=== PATIENT | male | born 1935 | race Two or more races ===

== ENCOUNTER 2023-11-01 04:08 | Inpatient (IN) | payer MEDICARE, OTHER ==
[~2023-11-01] VITALS: Ht 162.6 cm; Wt 58.5 kg
[2023-11-01 04:52] LABS: BASOPHILS # (AUTO) 0.1 K/uL (0.0-0.2); BASOPHILS % (AUTO) 0.8 % (0.0-2.0); EOSINOPHILS # (AUTO) 0.3 K/uL (0.0-0.7); EOSINOPHILS % (AUTO) 3.7 % (0.0-6.0); HEMATOCRIT 30 % (39-51); HEMOGLOBIN 10.2 g/dL (13.5-17.5); LYMPHOCYTES # (AUTO) 2.2 K/uL (0.8-4.8); LYMPHOCYTES % (AUTO) 32.3 % (20.0-44.0); MEAN CORPUSCULAR HEMOGLOBIN 30 PG (26.0-33.0); MEAN CORPUSCULAR HGB CONC 34 g/dl (31.0-36.0); MEAN CORPUSCULAR VOLUME 89 fL (80-96); MONOCYTES # (AUTO) 0.6 K/uL (0.1-1.30); MONOCYTES % (AUTO) 9.4 % (2.0-12.0); NEUTROPHILS # (AUTO) 3.7 K/uL (1.8-8.9); NEUTROPHILS % (AUTO) 53.8 % (43.0-81.0); PLATELET COUNT (AUTO) 275 K/uL (150-450); RED BLOOD CELL COUNT(AUTO) 3.35 MIL/uL (4.5-6.0); RED CELL DISTRIBUTION WIDTH 13.8 % (11.5-15.0); WHITE BLOOD COUNT (AUTO) 6.9 K/uL (4.3-11.0)
[2023-11-01 05:08] LABS: ALANINE AMINOTRANSFERASE 20 U/L (12-78); ALBUMIN 2.8 g/dL (3.4-5.0); ALCOHOL, BLOOD < 3 mg/dL (0-10); ALKALINE PHOSPHATASE 105 U/L (46-116); ASPARTATE AMINOTRANSFERASE 23 U/L (15-37); BILIRUBIN,DIRECT 0.2 mg/dL (0.0-0.2); BILIRUBIN,TOTAL 0.6 mg/dL (0.2-1.0); CALCIUM, SERUM 9.2 mg/dL (8.5-10.1); CARBON DIOXIDE 28 mmol/L (21-32); CHLORIDE 102 mmol/L (98-107); CREATININE 1.2 mg/dL (0.6-1.3); GLUCOSE 162 mg/dL (74-106); POTASSIUM 4.4 mmol/L (3.5-5.1); SODIUM SERUM 139 mmol/L (136-145); TOTAL PROTEIN, SERUM 6.7 g/dL (6.4-8.2); UREA NITROGEN, BLOOD 35 mg/dL (7-18)
[2023-11-01 05:11] LABS: ACETAMINOPHEN 0 ug/ml (10-30)
[2023-11-01 05:41] LABS: AMPHETAMINE, URINE NEGATIVE (NEGATIVE); BARBITURATE, URINE NEGATIVE (NEGATIVE); BENZODIAZEPINE, URINE NEGATIVE (NEGATIVE); CANNABINOID, URINE NEGATIVE (NEGATIVE); COCCAINE, URINE NEGATIVE (NEGATIVE); OPIATE, URINE NEGATIVE (NEGATIVE); PHENCYCLIDINE SCREEN,URINE NEGATIVE (NEGATIVE)
[2023-11-01 06:17] LABS: APPEARANCE,URINE CLEAR (CLEAR); COLOR,URINE YELLOW (YELLOW)
[2023-11-01 06:18] LABS: BILIRUBIN,URINE 1+ (NEGATIVE); BLOOD, URINE NEGATIVE Ery/uL (NEGATIVE); KETONES,URINE TRACE mg/dL (NEGATIVE); PROTEIN,URINE 1+ mg/dl (NEGATIVE); UGLUCOSE NEGATIVE (NEGATIVE)
[2023-11-01 06:19] LABS: LEUKOCYTE ESTERASE ,URINE 2+ (NEGATIVE); NITRITE, URINE NEGATIVE (NEGATIVE); UROBILINOGEN,URINE 0.2 EU/dL (0.2)
[2023-11-01 06:37] LABS: ADD URINE CULTURE YES; BACTERIA,URINE Many /HPF (None Seen)
[2023-11-01 06:40] LABS: CALCIUM OXALATE CRYSTALS,UR Few /HPF (None Seen); SQUAMOUS EPITHELIAL CELL,UR Rare /HPF (None Seen); YEAST,URINE Moderate /HPF (None Seen)
[2023-11-01] MEDS ORDERED: ATOR40TA PO (08:46)
[2023-11-01] MEDS ORDERED: GABA300C PO (08:46)
[2023-11-01] MEDS ORDERED: BISA10SU11 RC (08:46)
[2023-11-01] MEDS ORDERED: NA P133E RC (08:46)
[2023-11-01] MEDS ORDERED: INSU100V39 SQ (08:46)
[2023-11-01] MEDS ORDERED: CLON0.1T PO (08:46)
[2023-11-01] MEDS ORDERED: HYDR-4077 PO (08:46)
[2023-11-01] MEDS ORDERED: MYBETRIQ PO (08:46)
[2023-11-01] MEDS ORDERED: DOCU100T2 PO (08:46)
[2023-11-01] MEDS ORDERED: THIA100T74 PO (08:46)
[2023-11-01] MEDS ORDERED: CITA10TA17 PO (08:46)
[2023-11-01] MEDS ORDERED: MAGN400O6 PO (08:46)
[2023-11-01] MEDS ORDERED: TAMS-12 PO (08:46)
[2023-11-01] MEDS ORDERED: MEMA10TA PO (08:46)
[2023-11-01] MEDS ORDERED: INSU100I30 SQ (08:46)
[2023-11-01] MEDS ORDERED: ASCO100058 PO (08:46)
[2023-11-01] MEDS ORDERED: ACET-868 PO (08:46)
[2023-11-01] MEDS ORDERED: TRAM50TA2 PO (08:46)
[2023-11-01] MEDS ORDERED: ASPI-1169 PO (08:46)
[2023-11-01] MEDS ORDERED: CARV6.25 PO (08:46)
[2023-11-01] MEDS ORDERED: CRAN425C6 PO (08:46)
[2023-11-01] MEDS ORDERED: BACL20TA PO (08:46)
[2023-11-01] MEDS ORDERED: ACETAMINOPHEN 325 MG TABLET PO PRN (13:30)
[2023-11-01] MEDS ORDERED: DEXTROSE 50%-WATER 50 ML DISP.SYRIN IV PRN (13:30)
[2023-11-01] MEDS: BLOOD SUGAR DIAGNOSTIC 1 EACH STRIP IN SCH (14:36)
[2023-11-01 16:00] VITALS: BP 110/55; TEMP 98.1; O2SAT 98
[2023-11-01] MEDS: BLOOD SUGAR DIAGNOSTIC 1 EACH STRIP IN ONE (16:30)
[2023-11-01] MEDS ORDERED: MAG HYDROX/AL HYDROX/SIMETH 30 ML UDC PO PRN (16:30)
[2023-11-01] MEDS ORDERED: MAGNESIUM HYDROXIDE 30 ML UDC PO PRN (16:30)
[2023-11-01] MEDS: MEMANTINE HCL 5 MG TABLET PO SCH (17:04)
[2023-11-01] MEDS: GABAPENTIN 300 MG CAPSULE PO SCH (17:04)
[2023-11-01] MEDS: CARVEDILOL 6.25 MG TABLET PO SCH (17:08)
[2023-11-01] MEDS: INSULIN REGULAR, HUMAN 100 UNIT/ML 3 ML VIAL SQ PRN (17:46)
[2023-11-01 20:34] VITALS: BP 107/60; TEMP 98.2; O2SAT 97
[2023-11-01] MEDS: TAMSULOSIN 0.4 MG CAP.SR.24H PO SCH (22:21)
[2023-11-01] MEDS: INSULIN GLARGINE, 100 UNIT/ML CARTRIDGE SQ SCH (22:27)
[2023-11-02 07:47] LABS: CHOLESTEROL 128 mg/dL (<200); HDL CHOLESTEROL 34 mg/dL (40-60); LDL 68 mg/dL (0-99); TRIGLYCERIDES 133 mg/dL (30-150)
[2023-11-02 07:48] LABS: ALANINE AMINOTRANSFERASE 15 U/L (12-78); ALBUMIN 2.7 g/dL (3.4-5.0); ALKALINE PHOSPHATASE 96 U/L (46-116); ASPARTATE AMINOTRANSFERASE 14 U/L (15-37); BILIRUBIN,TOTAL 0.7 mg/dL (0.2-1.0); CALCIUM, SERUM 9.5 mg/dL (8.5-10.1); CARBON DIOXIDE 30 mmol/L (21-32); CHLORIDE 103 mmol/L (98-107); GLUCOSE 119 mg/dL (74-106); POTASSIUM 4.3 mmol/L (3.5-5.1); SODIUM SERUM 141 mmol/L (136-145); TOTAL PROTEIN, SERUM 6.8 g/dL (6.4-8.2); UREA NITROGEN, BLOOD 34 mg/dL (7-18)
[2023-11-02 08:00] VITALS: BP 70/55; TEMP 97.7; O2SAT 98
[2023-11-02] MEDS: ASPIRIN 81 MG TAB.CHEW PO SCH (08:53)
[2023-11-02] MEDS: DOCUSATE SODIUM 100 MG CAPSULE PO SCH (08:53)
[2023-11-02] MEDS: THIAMINE HCL 100 MG TABLET PO SCH (08:53)
[2023-11-02] MEDS: ASCORBIC ACID 500 MG TABLET PO SCH (08:53)
[2023-11-02] MEDS: DIVALPROEX SODIUM 125 MG TABLET.DR PO SCH (12:30)
[2023-11-02 16:06] VITALS: BP 72/55; TEMP 98; O2SAT 99
[2023-11-02 20:28] VITALS: BP 116/63; TEMP 97.9; O2SAT 98
[2023-11-02] MEDS: CEPHALEXIN MONOHYDRATE 500 MG CAPSULE PO SCH (21:40)
[2023-11-03 08:00] VITALS: BP 123/51; TEMP 97.9; O2SAT 100
[2023-11-03 16:00] VITALS: BP 156/78; TEMP 98; O2SAT 97
[2023-11-03 20:32] VITALS: BP 154/80; TEMP 98; O2SAT 95
[2023-11-04] MEDS ORDERED: Z GUARD REMEDY 4 OZ OINT TP PRN (07:00)
[2023-11-04 08:00] VITALS: BP 102/58; TEMP 97.7; O2SAT 97
[2023-11-04] MEDS: Z GUARD REMEDY 4 OZ OINT TP SCH (08:51)
[2023-11-04] MEDS: DIVALPROEX SODIUM 125 MG CAP.SPRINK PO SCH (12:35)
[2023-11-04 16:00] VITALS: BP 109/68; TEMP 97.6; O2SAT 97
[2023-11-04 20:00] VITALS: BP 115/69; TEMP 97.9; O2SAT 98
[2023-11-05 09:29] VITALS: BP 97/60; TEMP 98; O2SAT 96
[2023-11-05 16:00] VITALS: BP 101/84; TEMP 98; O2SAT 98
[2023-11-05 20:00] VITALS: BP 159/87; TEMP 98.3; O2SAT 98
[2023-11-06] MEDS: TEMAZEPAM 7.5 MG CAPSULE PO PRN (01:54)
[2023-11-06 08:00] VITALS: BP 91/56; TEMP 97.7; O2SAT 100
[2023-11-06] MEDS: LORAZEPAM 0.5 MG TABLET PO PRN (11:02)
[2023-11-06] MEDS: ACETAMINOPHEN 325 MG TABLET PO PRN (14:34)
[2023-11-06 16:00] VITALS: BP 102/60; TEMP 98.9; O2SAT 98
[2023-11-06 20:00] VITALS: BP 128/76; TEMP 98.4; O2SAT 98
[2023-11-07 07:34] LABS: BASOPHILS # (AUTO) 0.1 K/uL (0.0-0.2); BASOPHILS % (AUTO) 0.8 % (0.0-2.0); EOSINOPHILS # (AUTO) 0.4 K/uL (0.0-0.7); EOSINOPHILS % (AUTO) 5.7 % (0.0-6.0); HEMATOCRIT 28 % (39-51); HEMOGLOBIN 9.7 g/dL (13.5-17.5); MEAN CORPUSCULAR HEMOGLOBIN 31 PG (26.0-33.0); MEAN CORPUSCULAR HGB CONC 35 g/dl (31.0-36.0); MEAN CORPUSCULAR VOLUME 90 fL (80-96); MONOCYTES # (AUTO) 0.6 K/uL (0.1-1.30); MONOCYTES % (AUTO) 8.2 % (2.0-12.0); NEUTROPHILS # (AUTO) 4.6 K/uL (1.8-8.9); NEUTROPHILS % (AUTO) 59.3 % (43.0-81.0); PLATELET COUNT (AUTO) 283 K/uL (150-450); RED BLOOD CELL COUNT(AUTO) 3.15 MIL/uL (4.5-6.0); RED CELL DISTRIBUTION WIDTH 14.3 % (11.5-15.0); WHITE BLOOD COUNT (AUTO) 7.8 K/uL (4.3-11.0)
[2023-11-07 07:49] LABS: ALANINE AMINOTRANSFERASE 16 U/L (12-78); ALBUMIN 2.6 g/dL (3.4-5.0); ALKALINE PHOSPHATASE 83 U/L (46-116); ASPARTATE AMINOTRANSFERASE 27 U/L (15-37); BILIRUBIN,TOTAL 0.6 mg/dL (0.2-1.0); CALCIUM, SERUM 9.4 mg/dL (8.5-10.1); CARBON DIOXIDE 26 mmol/L (21-32); CHLORIDE 101 mmol/L (98-107); CREATININE 0.9 mg/dL (0.6-1.3); GLUCOSE 72 mg/dL (74-106); SODIUM SERUM 138 mmol/L (136-145); TOTAL PROTEIN, SERUM 6.3 g/dL (6.4-8.2); UREA NITROGEN, BLOOD 35 mg/dL (7-18)
[2023-11-07 08:00] VITALS: BP 102/58; TEMP 97.7; O2SAT 98
[2023-11-07 08:23] LABS: VALPROIC ACID 23 ug/mL (50-100)
[2023-11-07 16:13] VITALS: BP 102/56; TEMP 98; O2SAT 95
[2023-11-07 21:32] VITALS: BP 127/68; TEMP 98; O2SAT 98
[2023-11-08 08:00] VITALS: BP 102/51; TEMP 97.9; O2SAT 97
[2023-11-08 16:00] VITALS: BP 101/51; TEMP 98.1; O2SAT 98
[2023-11-08] MEDS: DIVALPROEX SODIUM 125 MG CAP.SPRINK PO SCH (16:39)
[2023-11-08 21:05] VITALS: BP 99/62; TEMP 98.1; O2SAT 99
[2023-11-09 08:00] VITALS: BP 100/70; TEMP 98.7; O2SAT 100
[2023-11-09 16:00] VITALS: BP 105/70; TEMP 97.8; O2SAT 98
[2023-11-09 20:56] VITALS: BP 99/45; TEMP 98.4; O2SAT 97
[2023-11-10 08:00] VITALS: BP 101/62; TEMP 98.6; O2SAT 97
[2023-11-10 16:00] VITALS: BP 108/55; TEMP 97.9; O2SAT 98
[2023-11-10 20:47] VITALS: BP 124/66; TEMP 97.8; O2SAT 99
[2023-11-11 07:42] LABS: BASOPHILS % (AUTO) 0.5 % (0.0-2.0); EOSINOPHILS # (AUTO) 0.3 K/uL (0.0-0.7); EOSINOPHILS % (AUTO) 3.5 % (0.0-6.0); HEMATOCRIT 28 % (39-51); HEMOGLOBIN 9.7 g/dL (13.5-17.5); LYMPHOCYTES # (AUTO) 1.9 K/uL (0.8-4.8); MEAN CORPUSCULAR HEMOGLOBIN 31 PG (26.0-33.0); MEAN CORPUSCULAR HGB CONC 35 g/dl (31.0-36.0); MEAN CORPUSCULAR VOLUME 90 fL (80-96); MONOCYTES # (AUTO) 0.6 K/uL (0.1-1.30); MONOCYTES % (AUTO) 7.1 % (2.0-12.0); NEUTROPHILS # (AUTO) 5.8 K/uL (1.8-8.9); NEUTROPHILS % (AUTO) 66.9 % (43.0-81.0); PLATELET COUNT (AUTO) 296 K/uL (150-450); RED BLOOD CELL COUNT(AUTO) 3.13 MIL/uL (4.5-6.0); RED CELL DISTRIBUTION WIDTH 13.9 % (11.5-15.0); WHITE BLOOD COUNT (AUTO) 8.7 K/uL (4.3-11.0)
[2023-11-11 08:00] VITALS: BP 101/59; TEMP 98.6; O2SAT 99
[2023-11-11 08:14] LABS: ALANINE AMINOTRANSFERASE 23 U/L (12-78); ALBUMIN 2.4 g/dL (3.4-5.0); ALKALINE PHOSPHATASE 87 U/L (46-116); ASPARTATE AMINOTRANSFERASE 22 U/L (15-37); BILIRUBIN,TOTAL 0.5 mg/dL (0.2-1.0); CALCIUM, SERUM 8.6 mg/dL (8.5-10.1); CARBON DIOXIDE 29 mmol/L (21-32); CHLORIDE 101 mmol/L (98-107); CREATININE 0.8 mg/dL (0.6-1.3); GLUCOSE 189 mg/dL (74-106); POTASSIUM 4.3 mmol/L (3.5-5.1); SODIUM SERUM 137 mmol/L (136-145); TOTAL PROTEIN, SERUM 6.2 g/dL (6.4-8.2); UREA NITROGEN, BLOOD 30 mg/dL (7-18)
[2023-11-11 08:38] VITALS: BP 101/59
[2023-11-11 09:15] LABS: VALPROIC ACID 34 ug/mL (50-100)
== END 2023-11-11 14:50 | DRG 885 ==
LOC: ER 04:11 → TRANSITION 09:45 → GPS 13:16
PROVIDERS: ADMIT Nurse Practitioner Psychiatric/Mental Health; ATTEND Nurse Practitioner Acute Care
DX: F39 Unspecified mood [affective] disorder (principal); E11.65 Type 2 diabetes mellitus with hyperglycemia; E44.0 Moderate protein-calorie malnutrition; F03.918 Unspecified dementia, unspecified severity, with other behavioral disturbance; F03.93 Unspecified dementia, unspecified severity, with mood disturbance; N39.0 Urinary tract infection, site not specified; F29 Unspecified psychosis not due to a substance or known physiological condition; Z86.73 Personal history of transient ischemic attack (TIA), and cerebral infarction without residual deficits; N32.81 Overactive bladder; N40.1 Benign prostatic hyperplasia with lower urinary tract symptoms; I10 Essential (primary) hypertension; E11.40 Type 2 diabetes mellitus with diabetic neuropathy, unspecified; R47.1 Dysarthria and anarthria; E78.5 Hyperlipidemia, unspecified; E88.09 Other disorders of plasma-protein metabolism, not elsewhere classified; B96.20 Unspecified Escherichia coli [E. coli] as the cause of diseases classified elsewhere; R79.89 Other specified abnormal findings of blood chemistry; F32.A Depression, unspecified; S81.812A Laceration without foreign body, left lower leg, initial encounter; S81.811A Laceration without foreign body, right lower leg, initial encounter; X58.XXXA Exposure to other specified factors, initial encounter; Y92.9 Unspecified place or not applicable; Z91.81 History of falling
CPT/HCPCS: 36415; 70450-TC; 80048-TC; 80053-TC; 80061-TC; 80076-TC; 80164-TC; 81001; 82962-TC; 84443-TC; 85025-TC; 87086-TC; 97112-TC; 97116-TC; 97530-TC; A6253; G0480; J1815